=== PATIENT | male | born 1995 | race Caucasian/White ===

== ENCOUNTER 2017-02-25 01:54 | Emergency (ER) | payer SELFPAY ==
[2017-02-25 02:02] VITALS: RESP 16
[2017-02-25] MEDS ORDERED: SODIUM CHLORIDE 0.9% 1,000 ML IV STA (02:17)
[2017-02-25] MEDS ORDERED: MORPHINE SULFATE 4 MG/ML SYRINGE IVP STA (02:18)
[2017-02-25] MEDS ORDERED: DIPH,PERTUS(ACELL)TETVAC-LF 0.5 ML VIAL IM ONE (02:18)
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
[2017-02-25 02:28] LABS: Glucose,Whole Blood 111 mg/dL (75-99)
[2017-02-25 02:34] LABS: Basophils # (A) 0.1 k/uL (0-0.2); Basophils % (A) 1 %; CHCM 34.7; Eosinophils # (A) 0.1 k/uL (0-0.7); Eosinophils % (A) 2 %; HCT 47.4 % (39.0-53.0); HDW 2.45; HGB 15.6 gm/dL (13.0-17.5); Luc % (Auto) 1; Lymphocytes # (A) 1.7 k/uL (1.0-4.8); Lymphocytes % (A) 17 %; MCH 28.6 pg (25.0-35.0); MCV 86.6 fL (80.0-100.0); Mean Platelet Volume 7.9; Monocytes # (A) 0.5 k/uL (0-1.0); Monocytes % (A) 5 %; Neutrophils # (A) 7.2 k/uL (1.3-7.7); Neutrophils % (A) 75 %; RBC 5.47 m/uL (4.30-5.90); RDW 13.2 % (11.5-15.5); WBC 9.6 k/uL (4.0-11.0); WBC (Perox) 9.52
[2017-02-25 02:45] LABS: ALT 27 U/L (21-72); AST 21 U/L (17-59); Alcohol <10 mg/dL; Alkaline Phosphatase 101 U/L (38-126); Amylase 61 U/L (30-110); Anion Gap 10 mmol/L; Blood Urea Nitrogen 15 mg/dL (9-20); Calcium 9.7 mg/dL (8.4-10.2); Carbon Dioxide 25 mmol/L (22-30); Chloride 108 mmol/L (98-107); Glucose 116 mg/dL (74-99); Non-African American GFR(MDRD) >60 (>60 ml/min/1.73 sqM); Potassium 3.8 mmol/L (3.5-5.1); Sodium 143 mmol/L (137-145); Total Bilirubin 0.4 mg/dL (0.2-1.3); Total Protein 7.2 g/dL (6.3-8.2)
[2017-02-25 02:46] LABS: INR 1.1 (<1.1); Partial Thromboplastin Time 24.8 sec (22.0-30.0); Prothrombin Time 10.9 sec (9.0-12.0)
--- NOTE | 2017-02-25 02:54 | XR ---
INDICATION: Trauma COMPARISON: None. FINDINGS: Single frontal view demonstrates a normal cardiomediastinal silhouette. The lungs are clear. No pleural effusion or pneumothorax. The visualized osseous structures are within normal limits. IMPRESSION: No radiographically evidence of acute traumatic injury.
--- NOTE | 2017-02-25 02:55 | XR ---
INDICATION: Trauma. COMPARISON: None. FINDINGS: Portable AP supine view of the pelvis is provided. No evidence of acute fracture or malalignment. Sacroiliac joints, hip joints, and pubic symphysis are congruent. IMPRESSION: No radiographic evidence of acute osseous abnormality.
[2017-02-25 03:02] LABS: Creatine Kinase 121 U/L (55-170)
--- NOTE | 2017-02-25 03:07 | CT ---
CT FACIAL WITHOUT CONTRAST INDICATION: Trauma TECHNIQUE: Helical CT acquisition is performed through the facial bones. Sagittal and coronal reformatted images provided. No IV contrast is administered. This CT exam was performed using one or more of the following dose reduction techniques: automated exposure control, adjustment of the mA and/or kV according to patient size, and/or use of iterative reconstruction technique. DOSIMETRY: CTDIvol 39.90 mGy; DLP 612.20 mGy-cm COMPARISON: None. FINDINGS: There is no evidence of acute fracture of the facial bones. The nasal bones, paranasal andrade, orbits, zygomatic arches, pterygoid plates, and mandible are intact. No evidence of ocular globe injury or orbital foreign body. There is mild mucosal thickening in the maxillary sinuses and sphenoid sinus. The mastoid air cells are clear. Soft tissues are unremarkable. IMPRESSION: No CT evidence of acute traumatic injury.
[2017-02-25 03:15] LABS: Creatine Kinase MB 0.4 ng/mL (0.0-2.4); Troponin I <0.012 ng/mL (0.000-0.034)
--- NOTE | 2017-02-25 03:24 | CT ---
CT HEAD WITHOUT CONTRAST INDICATION: Trauma TECHNIQUE: Helical CT acquisition is performed through the brain from the posterior fossa to the cranial vault. Sagittal and coronal reformatted images provided. No IV contrast is administered. This CT exam was performed using one or more of the following dose reduction techniques: automated exposure control, adjustment of the mA and/or kV according to patient size, and/or use of iterative reconstruction technique. DOSIMETRY: CTDIvol 57.40 mGy; DLP 1012.70 mGy-cm COMPARISON: None. FINDINGS: No intracranial hemorrhage, abnormal intra- or extra-axial collections or parenchymal lesions are seen. The shape and configuration of the cortical sulci, basal cisterns and ventricles are within normal limits. The torres-white differentiation is preserved. No evidence of mass effect, midline shift, or edema. The calvarium is intact. There is mucosal thickening in the sphenoid sinus. The mastoid air cells are clear. IMPRESSION: No CT evidence of acute intracranial process. CT CERVICAL SPINE INDICATION: Trauma TECHNIQUE: Helical CT acquisition is performed through the cervical spine from the skull base to the thoracic inlet. Sagittal and coronal reformatted images provided. No IV contrast is administered. This CT exam was performed using one or more of the following dose reduction techniques: automated exposure control, adjustment of the mA and/or kV according to patient size, and/or use of iterative reconstruction technique. DOSIMETRY: CTDIvol 23.40 mGy; DLP 412.80 mGy-cm COMPARISON: None. FINDINGS: Straightening of the cervical spine. No fracture or subluxations are noted. The vertebral body heights, disc spaces and alignment are preserved. No prevertebral soft tissue swelling. IMPRESSION: Straightening of the cervical spine without evidence of acute osseous abnormality.
[2017-02-25] MEDS ORDERED: TOBRAMYCIN 0.3% OPHTH DROPS 5 ML BTL BOTH EYES STA (03:30)
[2017-02-25 03:37] VITALS: BP 103/53; PULSE 73; TEMP 98.4
== END 2017-02-25 03:36 | disposition home or self-care (01) ==
LOC: EC 01:54
DX: S13.9XXA Sprain of joints and ligaments of unspecified parts of neck, initial encounter (principal); S00.211A Abrasion of right eyelid and periocular area, initial encounter; Z23 Encounter for immunization; F17.200 Nicotine dependence, unspecified, uncomplicated; V46.5XXA Car driver injured in collision with other nonmotor vehicle in traffic accident, initial encounter; Y92.410 Unspecified street and highway as the place of occurrence of the external cause
CPT/HCPCS: 36415; 93005; 86900; 86901; 80053; 82150; 82550; 82553; 83605; 83690; 84484; 85025; 85610; 85730; 86850; 80320; 71010; 72170; 72125; 70486; 70450; 90715; 99285; 96374; 96361; 90471; J2270

== ENCOUNTER 2018-05-25 03:36 | Emergency (ER) | payer OTHER ==
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
[2018-05-25 07:20] VITALS: BP 120/83; PULSE 62; RESP 18; TEMP 97.3
== END 2018-05-25 07:20 | disposition home or self-care (01) ==
LOC: EC 03:36
DX: S61.211A Laceration without foreign body of left index finger without damage to nail, initial encounter (principal); F17.200 Nicotine dependence, unspecified, uncomplicated; W45.8XXA Other foreign body or object entering through skin, initial encounter; Y99.0 Civilian activity done for income or pay
CPT/HCPCS: 12001; 99282